=== PATIENT | female | born 1970 | race Caucasian/White ===

== ENCOUNTER 2016-12-22 14:58 | Emergency (ER) ==
[2016-12-22 15:11] VITALS: BP 166/114; TEMP 99.6; BMI 45.1
--- NOTE | 2016-12-22 15:19 | ED.PDOC ---
General ED Provider: Dr. CHRISTINA DEJESUS JR Chief Complaint: Abdominal Pain Stated Complaint: HAVING ABD PAIN FOR ABOUT TWO WEEKS OFF AND ON. HAS BEEN CONSULTING WITH DR MACHADO FOR A COLONOSCOPY. TWO BLOODY STOOLS.[End]ABD PAIN WITH BLOODY STOOLS,BLOOD WITH LAST TWO STOOLS TODAY. 99.6 78 20 97% 166/114 colonoscopy 2006, found two small polyps, has had blood in stool once before with diverticulitis, scheduling colonoscopy due to pain in right abdomen, tender left mid abdomen (had had pain RUQ then LUQ now moving down is tender as noted)has cell phone photo of blood in stool, aching and burning. Time Seen by Physician: 15:32 Mode of Arrival: Walk-In Information Source: Patient Exam Limitations: No limitations Primary Care Provider: ABNER MACHADO Nursing and Triage Documentation Reviewed and Agree: No GI Complaint Exam - Rectal Complaint/Exam Patient Complains of: Reports: Rectal pain, Rectal bleeding Onset/Duration: 1 day Symptoms Are: Resolved Timing: Intermittent Episodes Lasting: Seconds Initial Severity: Moderate Current Severity: Moderate Location: Reports: Anal (and abdominal) Character: Reports: Sharp Aggravating: Reports: Bowel movement Alleviating: Reports: Position Associated Signs and Symptoms: Reports: Bright red blood w/ stool Related History: Denies: Similar episode Related Surgical History: Reports: Cholecystectomy (colonoscopy) Rectal Exam: Present: Normal findings, Tenderness (right anal verge and posterior denies trauma). Absent: Internal hemorrhoids, External hemorrhoids, Melena Differential Diagnoses: Rectal Fissure (GIBLEED) Review of Systems - Review Of Systems Constitutional: Reports: Malaise Eyes: Reports: No symptoms Ears, Nose, Mouth, Throat: Reports: No symptoms Respiratory: Reports: No symptoms Cardiac: Reports: No symptoms GI: Reports: Abdominal pain, Rectal bleeding : Reports: No symptoms Musculoskeletal: Reports: No symptoms Skin: Reports: No symptoms Neurological: Reports: No symptoms Endocrine: Reports: No symptoms Hematologic/Lymphatic: Reports: No symptoms All Other Systems: Other Past Medical History - Past Medical History Previously Healthy: Yes Endocrine: Reports: Dyslipidemia Cardiovascular: Reports: Hypertension Respiratory: Reports: None Hematological: Reports: None Gastrointestinal: Reports: Liver (HEP C), GI Bleed, Diverticulitis, Gallstones, Pancreatitis Genitourinary: Reports: CKD, Other (polycystic kidneys) Neuro/Psych: Reports: None Musculoskeletal: Reports: None Cancer: Reports: None Last Menstrual Period: 2000 Other Pertinent Past Medical History: pancreatitis - Surgical History General Surgical History: Reports: Hysterectomy, , Cholecystectomy ( ERCP) - Family History Family History: Reports: Unknown - Social History Smoking Status: Former smoker Hx Substance Use: No Alcohol Screening: None - Immunizations Tetanus Shot up to Date: Yes Physical Exam - Physical Exam Appearance: Well-appearing, Obese Pain Distress: Moderate Eyes: SARAH BETH ENT: Ears normal, Nose normal, Oropharynx normal Neck: Supple Respiratory: Airway patent, Breath sounds clear, Breath sounds equal, Respirations nonlabored Cardiovascular: RRR, Pulses normal, No rub, No murmur GI/: Soft, Tender (left mid abdomen) Musculoskeletal: Normal strength, ROM intact, No edema, No calf tenderness Skin: Warm, Dry, Normal color Neurological: Sensation intact, Motor intact, Reflexes intact, Cranial nerves intact, Alert, Oriented Psychiatric: Affect appropriate, Mood appropriate Physician Notification - Case Discussed Physician Notified: dr johana riojas- may call dr rodriguez in the morning Time of Notification: 17:30 Critical Care Note - Critical Care Note Total Time (mins): 0 Course - Course Hematology/Chemistry: 12/22/16 15:23 12/22/16 15:30 Orders, Labs, Meds: Lab Review 12/22/16 12/22/16 12/22/16 15:23 15:30 15:35 WBC 6.83 RBC 4.31 Hgb 13.3 Hct 40.0 MCV 92.8 MCH 30.9 MCHC 33.3 RDW Coeff of Crow 13.6 Plt Count 176 Immature Gran % (Auto) 0.4 Neut % (Auto) 70.3 Lymph % (Auto) 19.9 [place] % (Auto) 5.6 Eos % (Auto) 3.2 Baso % (Auto) 0.6 Immature Gran # (Auto) 0.0 Neut # 4.8 Lymph # 1.4 Craig # 0.4 Eos # 0.2 Baso # 0.0 Sodium 141 Potassium 4.8 Chloride 108 H Carbon Dioxide 23 Anion Gap 14.8 BUN 26 H Creatinine 2.36 H Estimated GFR (MDRD) 22.00 BUN/Creatinine Ratio 11.01 Glucose 91 Calcium 9.6 Total Bilirubin 0.39 AST 44 H ALT 47 Alkaline Phosphatase 22 L Total Protein 7.4 Albumin 3.8 Globulin 3.6 Albumin/Globulin Ratio 1.06 Amylase 68 Lipase 42 Urine Color Yellow Urine Clarity Clear Urine pH 5.5 Ur Specific [place] 1.015 Urine Protein 1+ Urine Glucose (UA) Negative Urine Ketones Negative Urine Blood Trace-lysed Urine Nitrite Negative Urine Bilirubin Negative Urine Urobilinogen 0.2 Ur Leukocyte Esterase Negative Urine Microscopic RBC 0-2 Urine Microscopic WBC 0-2 Ur Squamous Epith Cells 0-2 Urine Bacteria Trace Stl Occult Blood (IFOB) Negative Stool Occult Blood #2 No specimen received Stool Occult Blood #3 No specimen received Orders Category Date Time Status NPO REMINDER: IMAGING ONCE CARE 12/22/16 16:07 Completed ED IV/MEDIPORT/POWERPORT .ONCE EMERGENCY 12/22/16 15:23 Active IV [ED IV/MEDIPORT/POWERPORT] .ONCE EMERGENCY 12/22/16 15:38 Active AMYLASE Stat LAB 12/22/16 15:30 Completed CBC W/ AUTO DIFF Stat LAB 12/22/16 15:23 Completed COMPREHENSIVE METABOLIC PANEL Stat LAB 12/22/16 15:30 Completed LIPASE Stat LAB 12/22/16 15:30 Completed OCCULT BLOOD, STOOL Stat LAB 12/22/16 15:35 Completed URINALYSIS C & S IF INDICATED Stat LAB 12/22/16 15:35 Completed 0.9 % Sodium Chloride [Saline Flush] MEDS 12/22/16 15:23 Discontinued 1 syr IVF PRN PRN Hydromorphone HCl [Dilaudid 1 mg/ml Syringe] MEDS 12/22/16 15:38 Discontinued 1 mg IVP ONCE STA Metronidazole [Flagyl] MEDS 12/22/16 16:00 Discontinued 500 mg PO ONCE STA Ondansetron HCl/Pf [Zofran 4 mg/2 ml] MEDS 12/22/16 15:38 Discontinued 4 mg IVP ONCE STA Sodium Chloride 0.9% [Sodium Chloride] 500 ml MEDS 12/22/16 15:37 Discontinued IV 100 mls/hr CT ABDOMEN/PELVIS WO CONTRAST Stat RADS 12/22/16 16:10 Completed Medications Discontinued Medications Generic Name Dose Route Start Last Admin Trade Name Freq PRN Reason Stop Dose Admin Hydromorphone HCl 1 mg 12/22/16 15:38 12/22/16 16:15 Dilaudid 1 Mg/Ml Syringe IVP 12/22/16 15:39 1 mg ONCE STA Administration Sodium Chloride 500 mls @ 100 mls/hr 12/22/16 15:37 12/22/16 16:07 Sodium Chloride IV 12/22/16 20:36 100 mls/hr .Q5H STA Administration Metronidazole 500 mg 12/22/16 16:00 12/22/16 16:08 Flagyl PO 12/22/16 16:01 500 mg ONCE STA Administration Ondansetron HCl 4 mg 12/22/16 15:38 12/22/16 16:10 Zofran 4 Mg/2 Ml IVP 12/22/16 15:39 4 mg ONCE STA Administration Sodium Chloride 1 syr 12/22/16 15:23 12/22/16 16:07 Saline Flush IVF 1 syr PRN PRN Administration To flush IV Vital Signs: Temp Pulse Resp BP Pulse Ox 12/22/16 14:59 99.6 F 78 20 166/114 H 97 Departure - Departure Time of Disposition: 17:45 Disposition: HOME SELF-CARE Discharge Problem: Abdominal pain Instructions: Abdominal Pain (ED), Gastrointestinal Bleeding (ED) Condition: Good Pt referred to PMD for follow-up: Yes Additional Instructions: 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 morning for follow up gastrointestinal bleeding [phone] [address] doctor office [address]#2 return if more than two bloody bowel movements if light headed if abdominal pain worsens or present to [facility] may use norco for pain Prescriptions: Hydrocodone Bit/Acetaminophen [Rumsey 5-325] 1 - 2 tab PO Q6HR PRN #12 tablet PRN Reason: pain Allergies/Adverse Reactions: Allergies No Known Allergies Allergy (Verified 12/22/16 16:28) Home Medications: Ambulatory Orders Aspirin [Aspirin EC] 81 mg PO DAILY 08/21/13 Lisinopril [Zestril] 40 mg PO DAILY 08/21/13 Sertraline HCl [Zoloft] 50 mg PO BEDTIME 08/21/13 Cholecalciferol (Vitamin D3) [Vitamin D] 50,000 unit PO MONTHLY 08/10/16 Fenofibrate Nanocrystallized [Tricor] 48 mg PO DAILY 08/10/16 Furosemide [Lasix Tab] 20 mg PO DAILY 08/10/16 Ranitidine HCl [Zantac] 150 mg PO QDAC 11/18/16 Calcitriol 0.25 mcg PO DAILY 12/22/16 Hydrocodone Bit/Acetaminophen [Rumsey 5-325] 1 - 2 tab PO Q6HR PRN #12 tablet 01/06
[2016-12-22 15:37] LABS: BASOPHILS % (AUTO) 0.6 % (0.0-3.0); EOSINOPHILS # (AUTO) 0.2 K/ul (0.0-0.7); EOSINOPHILS % (AUTO) 3.2 % (0.0-7.0); HEMOGLOBIN 13.3 g/dl (12.0-16.0); IMMATURE GRANULOCYTE % (AUTO) 0.4 % (0.0-5.0); LYMPHOCYTES # (AUTO) 1.4 K/uL (0.60-3.4); LYMPHOCYTES % (AUTO) 19.9 (10.0-50.0); MEAN CORPUSCULAR HEMOGLOBIN 30.9 pg (27.0-31.0); MEAN CORPUSCULAR HGB CONC 33.3 (31.8-35.4); MEAN CORPUSCULAR VOLUME 92.8 fl (81.0-99.0); MONOCYTES # (AUTO) 0.4 K/uL (0.4-2.0); MONOCYTES % (AUTO) 5.6 (0-10); NEUTROPHILS # (AUTO) 4.8 K/ul (2.0-6.9); NEUTROPHILS % (AUTO) 70.3; PLATELET COUNT 176 10^3/uL (140-440); RED BLOOD COUNT 4.31 10^6/ul (4.20-5.40); WHITE BLOOD COUNT 6.83 K/ul (4.6-10.2)
[2016-12-22] MEDS ORDERED: SODIUM CHLORIDE 500 ML IV STA (15:37)
[2016-12-22] MEDS ORDERED: ZOFRAN 4 MG/2 ML IVP STA (15:38)
[2016-12-22] MEDS ORDERED: DILAUDID 1 MG/ML SYRINGE IVP STA (15:38)
[2016-12-22 15:47] LABS: BILIRUBIN,URINE Negative (NEGATIVE); KETONES,URINE Negative (NEGATIVE); LEUKOCYTE ESTERASE ,URINE Negative (NEGATIVE); NITRITE,URINE Negative (NEGATIVE); PH,URINE 5.5 (5-9); PROTEIN,URINE 1+ (NEGATIVE); URINE, BLOOD Trace-lysed (NEGATIVE)
[2016-12-22 15:53] LABS: OCCULT BLOOD INTERNAL QC 1 INTERNAL QC VALID; OCCULT BLOOD INTERNAL QC 2 INTERNAL QC VALID; OCCULT BLOOD SAMPLE 1 NEGATIVE (NEGATIVE); OCCULT BLOOD SAMPLE 2 NO SPECIMEN RECEIVED (NEGATIVE); OCCULT BLOOD SAMPLE 3 NO SPECIMEN RECEIVED (NEGATIVE)
[2016-12-22 15:54] LABS: ADD URINE MICROSCOPIC YES; OCCULT BLOOD INTERNAL QC 3 INTERNAL QC VALID
[2016-12-22 15:59] LABS: ALBUMIN 3.8 g/dL (3.4-5.0); ALBUMIN/GLOBULIN RATIO 1.06; ANION GAP 14.8; BILIRUBIN,TOTAL 0.39 mg/dL (0.00-1.20); BUN/CREATININE RATIO 11.01; CALCIUM 9.6 mg/dL (8.2-10.2); CREATININE 2.36 mg/dL (0.60-1.30); POTASSIUM 4.8 mmol/L (3.5-5.10); TOTAL PROTEIN 7.4 g/dL (6.4-8.2)
[2016-12-22] MEDS ORDERED: FLAGYL PO STA (16:00)
[2016-12-22 16:07] LABS: BACTERIA,URINE TRACE (NOT PRESENT)
--- NOTE | 2016-12-22 16:49 | CT ---
EXAM: CT abdomen pelvis without intravenous contrast 12/22/2016. Sagittal and coronal reformatted images obtained HISTORY: Abdominal pain COMPARISON: 11/18/2016 FINDINGS: The liver shows no acute abnormality. There is a small amount of pneumobilia. Status po st cholecystectomy. Diffuse hepatic steatosis. The adrenal glands show no acute abnormality. Innumerable simple and complex cystic lesions through out both kidneys. This is consistent with polycystic kidney disease. The ureters are normal calibe r. There is no evidence of urinary obstruction. The spleen and pancreas show no acute process. There is no bowel obstruction. Normal appendix. Unremarkable urinary bladder. No free air or free fluid. Colonic diverticulosis without diverticulitis. IMPRESSION: 1. Hepatic steatosis. 2. Pneumobilia post cholecystectomy. 3. Polycystic kidney disease. 4. No urinary or bowel obstruction and normal appendix. 5. Diverticulosis without diverticulitis. 6. No acute inflammatory process identified within the abdomen or pelvis within the limitation of a noncontrast enhanced examination.
== END 2016-12-22 18:17 | disposition home or self-care (01) ==
LOC: ED 14:58
DX: R10.9 Unspecified abdominal pain (principal); K92.1 Melena; I10 Essential (primary) hypertension; E78.5 Hyperlipidemia, unspecified; Z87.19 Personal history of other diseases of the digestive system; Z79.899 Other long term (current) drug therapy
CPT/HCPCS: 36415; 80053; 81001; 82150; 82272; 83690; 85025; 96361; 96374; 96375; 99283

== ENCOUNTER 2017-01-25 13:11 | Outpatient (CLI) ==
[2017-01-25 13:25] LABS: BASOPHILS % (AUTO) 0.6 % (0.0-3.0); EOSINOPHILS # (AUTO) 0.1 K/ul (0.0-0.7); EOSINOPHILS % (AUTO) 2.8 % (0.0-7.0); HEMATOCRIT 38.1 % (37.0-47.0); HEMOGLOBIN 12.6 g/dl (12.0-16.0); IMMATURE GRANULOCYTE % (AUTO) 0.6 % (0.0-5.0); LYMPHOCYTES # (AUTO) 1.1 K/uL (0.60-3.4); LYMPHOCYTES % (AUTO) 22.8 (10.0-50.0); MEAN CORPUSCULAR HEMOGLOBIN 30.8 pg (27.0-31.0); MEAN CORPUSCULAR HGB CONC 33.1 (31.8-35.4); MEAN CORPUSCULAR VOLUME 93.2 fl (81.0-99.0); MONOCYTES # (AUTO) 0.2 K/uL (0.4-2.0); MONOCYTES % (AUTO) 3.8 (0-10); NEUTROPHILS # (AUTO) 3.5 K/ul (2.0-6.9); NEUTROPHILS % (AUTO) 69.4; PLATELET COUNT 140 10^3/uL (140-440); RED BLOOD COUNT 4.09 10^6/ul (4.20-5.40); WHITE BLOOD COUNT 5.01 K/ul (4.6-10.2)
== END 2017-01-25 13:12 | disposition home or self-care (01) ==
LOC: LAB 13:11
PROVIDERS: ATTEND Internal Medicine Hematology & Oncology
DX: D75.1 Secondary polycythemia (principal)
CPT/HCPCS: 36415; 85025

== ENCOUNTER 2017-02-18 13:45 | Emergency (ER) ==
[2017-02-18 13:55] VITALS: BP 150/90; TEMP 98.6; BMI 45.4
[2017-02-18 14:33] LABS: BASOPHILS # (AUTO) 0.1 K/uL (0-0.2); BASOPHILS % (AUTO) 0.5 % (0.0-3.0); EOSINOPHILS # (AUTO) 0.2 K/ul (0.0-0.7); EOSINOPHILS % (AUTO) 2.3 % (0.0-7.0); HEMATOCRIT 42.9 % (37.0-47.0); HEMOGLOBIN 13.9 g/dl (12.0-16.0); IMMATURE GRANULOCYTE % (AUTO) 0.6 % (0.0-5.0); LYMPHOCYTES # (AUTO) 1.3 K/uL (0.60-3.4); MEAN CORPUSCULAR HEMOGLOBIN 29.8 pg (27.0-31.0); MEAN CORPUSCULAR HGB CONC 32.4 (31.8-35.4); MEAN CORPUSCULAR VOLUME 92.1 fl (81.0-99.0); MONOCYTES # (AUTO) 0.6 K/uL (0.4-2.0); NEUTROPHILS # (AUTO) 7.9 K/ul (2.0-6.9); NEUTROPHILS % (AUTO) 77.6; PLATELET COUNT 177 10^3/uL (140-440); RED BLOOD COUNT 4.66 10^6/ul (4.20-5.40); WHITE BLOOD COUNT 10.22 K/ul (4.6-10.2)
[2017-02-18 14:43] LABS: BILIRUBIN,URINE Negative (NEGATIVE); KETONES,URINE Negative (NEGATIVE); LEUKOCYTE ESTERASE ,URINE Negative (NEGATIVE); NITRITE,URINE Negative (NEGATIVE); PH,URINE 5.5 (5-9); PROTEIN,URINE 1+ (NEGATIVE); URINE, BLOOD Trace-intact (NEGATIVE)
[2017-02-18 14:44] LABS: ADD URINE MICROSCOPIC YES
--- NOTE | 2017-02-18 14:47 | DI ---
EXAM: Two-view chest. HISTORY: Cough. COMPARISON: None. FINDINGS: AP and lateral views of the chest. The lungs are clear without consolidation or effusion . The heart size and pulmonary vasculature is normal. There is no pneumothorax. The osseous struc tures are normal for age. The aorta is unremarkable. IMPRESSION: No acute pulmonary disease.
[2017-02-18 14:51] LABS: ALBUMIN/GLOBULIN RATIO 1.05; BILIRUBIN,TOTAL 0.71 mg/dL (0.00-1.20); BUN/CREATININE RATIO 16.84; CALCIUM 10.2 mg/dL (8.2-10.2); CREATININE 2.73 mg/dL (0.60-1.30); TOTAL PROTEIN 7.8 g/dL (6.4-8.2)
--- NOTE | 2017-02-18 14:52 | CT ---
EXAM: Noncontrast CT of the abdomen and pelvis. HISTORY: Abdominal pain. COMPARISON: None. TECHNIQUE: Contiguous axial images at 3 mm intervals were obtained from lung bases through the pelv is. No contrast was given. Coronal reformats were reviewed. FINDINGS: The study is limited without contrast. CHEST: The lung bases show no lobar consolidation or effusion. The heart size is within normal nobles its. ABDOMEN: Evaluation of the soft tissue organs is limited without contrast. LIVER: Noncontrast images of the liver show no solid mass lesion or intrahepatic ductal dilatation. The liver is mildly hypodense consistent fat infiltration. BILIARY: The gallbladder is surgically absent. There are clips in the gallbladder fossa. The comm on bile duct is normal. SPLEEN: The spleen is unremarkable. PANCREAS: The pancreas shows no mass lesion or peripancreatic inflammation. ADRENAL GLANDS: The adrenal glands are normal. RENAL: The kidneys are enlarged with multiple cysts bilaterally. Majority cysts are hyperdense. Th ere is a ring calcified cyst as well as several hyperdense cyst. Evaluation is limited without cont rast. There are no obstructing ureteral stones. RETROPERITONEUM: The aorta is unopacified. No aneurysm is identified. Minimal aortic calcificatio ns are seen. There is no retroperitoneal or mesenteric adenopathy. BOWEL: The bowel is unopacified. There is no obstruction or inflammatory change. There is no free fluid or free air. No significant inflammatory changes are seen. Scattered diverticula seen with out evidence of acute diverticulitis. The appendix is identified and is normal. PELVIS: BLADDER: The bladder is not well distended which limits evaluation P. GENITOURINARY STRUCTURES: The uterus is absent. There is a left adnexal mass measuring 4.9 x 5.7 c m. Evaluation is limited on CT. OSSEOUS STRUCTURES: The osseous structures are normal for age. IMPRESSION 1. No acute intra-abdominal abnormality. Limited study without contrast. No obstructing ureteral stones. 2. The appendix is normal. 3. Multiple bilateral too numerous to count cystic masses consistent with polycystic kidney disease . Correlate with history and symptoms. No comparisons are available. 4. Left adnexal mass measuring up to 5.7 cm. Consider follow-up ultrasound if clinically indicated .
--- NOTE | 2017-02-18 15:17 | ED.PDOC ---
General ED Provider: Dr. 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 ) Mode of Arrival: Walk-In Information Source: Patient Exam Limitations: No limitations Primary Care Provider: ABNER MACHADO Nursing and Triage Documentation Reviewed and Agree: Yes GI Complaint Exam - Abdominal Pain Complaint/Exam Onset: Gradual Duration: 1 DAY Symptoms Are: Still present Timing: Intermittent Initial Severity: Moderate Current Severity: Mild Location of Pain: RLQ, LLQ Character: Reports: Aching Aggravating: Reports: None Alleviating: Reports: None Associated Signs and Symptoms: Denies: Diaphoresis, Fever, Cough, Chest pain, Dizziness, Back pain, Constipation, Blood in stool, Dysuria, Urinary frequency, Decreased urine output, Decreased appetite, Vaginal bleeding, Vaginal discharge , Nausea, Vomiting, Diarrhea, Sore throat, Decreased activity Related History: Reports: Similar episode (DIVERTICULITIS ) AAA Risk Factors: Reports: None Cardiac Risk Factors: Reports: Hypertension, Elevated lipids Ectopic Risk Factors: Reports: None Ovarian Torsion Risk Factors: Reports: None Surgical Obstruction Risk Factors: Reports: None Related Surgical History: Reports: None Patient Rh Status: Unknown Abdominal Findings: Present: None Differential Diagnoses: Appendicitis, Bowel Obstruction, Constipation, Gastroenteritis, Pancreatitis (DIVERTICULITIS) Review of Systems - Review Of Systems Constitutional: Reports: No symptoms Eyes: Reports: No symptoms Ears, Nose, Mouth, Throat: Reports: No symptoms Respiratory: Reports: No symptoms Cardiac: Reports: No symptoms GI: Reports: Abdominal pain : Reports: No symptoms Musculoskeletal: Reports: No symptoms Skin: Reports: No symptoms Neurological: Reports: No symptoms Endocrine: Reports: No symptoms Hematologic/Lymphatic: Reports: No symptoms All Other Systems: Reviewed and Negative Past Medical History - Past Medical History Previously Healthy: Yes Endocrine: Reports: Dyslipidemia Cardiovascular: Reports: Hypertension Respiratory: Reports: None Hematological: Reports: None Gastrointestinal: Reports: Liver (HEP C), GI Bleed, Diverticulitis, Gallstones, Pancreatitis Genitourinary: Reports: CKD, Other (polycystic kidneys) Neuro/Psych: Reports: None Musculoskeletal: Reports: None Cancer: Reports: None Last Menstrual Period: 2000 Other Pertinent Past Medical History: pancreatitis - Surgical History General Surgical History: Reports: Hysterectomy, , Cholecystectomy ( ERCP) - Family History Family History: Reports: Unknown - Social History Smoking Status: Former smoker Hx Substance Use: No Alcohol Screening: None Physical Exam - Physical Exam Appearance: Well-appearing, No pain distress, Well-nourished Eyes: SARAH BETH, EOMI, Conjunctiva clear ENT: Ears normal, Nose normal, Oropharynx normal Respiratory: Airway patent, Breath sounds clear, Breath sounds equal, Respirations nonlabored Cardiovascular: RRR, Pulses normal, No rub, No murmur GI/: Soft, Nontender, No masses, Bowel sounds normal, No Organomegaly Musculoskeletal: Normal strength, ROM intact, No edema, No calf tenderness Skin: Warm, Dry, Normal color Neurological: Sensation intact, Motor intact, Reflexes intact, Cranial nerves intact, Alert, Oriented Psychiatric: Affect appropriate, Mood appropriate Interpretation - Radiology Interpretation Radiology Interpretation By: Radiologist Radiology Results: No acute changes Critical Care Note - Critical Care Note Total Time (mins): 0 Course - Course Hematology/Chemistry: 02/18/17 14:25 02/18/17 14:25 Orders, Labs, Meds: Lab Review 02/18/17 14:25 WBC 10.22 H RBC 4.66 Hgb 13.9 Hct 42.9 MCV 92.1 MCH 29.8 MCHC 32.4 RDW Coeff of Crow 14.3 Plt Count 177 Immature Gran % (Auto) 0.6 Neut % (Auto) 77.6 Lymph % (Auto) 13.0 [place] % (Auto) 6.0 Eos % (Auto) 2.3 Baso % (Auto) 0.5 Immature Gran # (Auto) 0.1 Neut # 7.9 H Lymph # 1.3 [place] # 0.6 Eos # 0.2 Baso # 0.1 Sodium 138 Potassium 5.0 Chloride 107 Carbon Dioxide 21 Anion Gap 15.0 BUN 46 H Creatinine 2.73 H Estimated GFR (MDRD) 19.00 BUN/Creatinine Ratio 16.84 Glucose 116 H Calcium 10.2 Total Bilirubin 0.71 AST 33 ALT 45 Alkaline Phosphatase 25 L Total Protein 7.8 Albumin 4.0 Globulin 3.8 Albumin/Globulin Ratio 1.05 Amylase 88 Lipase 54 Urine Color Yellow Urine Clarity Clear Urine pH 5.5 Ur Specific [place] 1.010 Urine Protein 1+ Urine Glucose (UA) Negative Urine Ketones Negative Urine Blood Trace-intact Urine Nitrite Negative Urine Bilirubin Negative Urine Urobilinogen 0.2 Ur Leukocyte Esterase Negative Urine Microscopic RBC 2-5 Ur Squamous Epith Cells 5-10 Orders Category Date Time Status AMYLASE Stat LAB 02/18/17 14:25 Completed CBC W/ AUTO DIFF Stat LAB 02/18/17 14:25 Completed COMPREHENSIVE METABOLIC PANEL Stat LAB 02/18/17 14:25 Completed LIPASE Stat LAB 02/18/17 14:25 Completed URINALYSIS C & S IF INDICATED Stat LAB 02/18/17 14:25 Completed CHEST, 2 VIEWS PA & LAT Stat RADS 02/18/17 14:[address] ABDOMEN/PELVIS WO CONTRAST Stat RADS 02/18/17 14:21 Completed Vital Signs: Temp Pulse Resp BP Pulse Ox 02/18/17 13:46 98.6 F 84 22 150/90 H 96 Departure - Departure Time of Disposition: 15:17 (PT RWEPORTED OF A LEFT SIDE 6 CM OVARY CYST FOR WHICH SHE IS SHE BEING TREATED NEXT WEEK ) Disposition: HOME SELF-CARE Discharge Problem: Abdominal pain, Renal insufficiency Instructions: Abdominal Pain (ED), Ovarian Cyst (ED) Condition: Good Pt referred to PMD for follow-up: No Additional Instructions: Please call your Family Physician as soon as possible to schedule a follow-up appointment. Allergies/Adverse Reactions: Allergies No Known Allergies Allergy (Verified 02/18/17 13:54) Home Medications: Ambulatory Orders Aspirin [Aspirin EC] 81 mg PO DAILY 08/21/13 Lisinopril [Zestril] 40 mg PO DAILY 08/21/13 Sertraline HCl [Zoloft] 50 mg PO BEDTIME 08/21/13 Cholecalciferol (Vitamin D3) [Vitamin D] 50,000 unit PO WEEKLY 08/10/16 Fenofibrate Nanocrystallized [Tricor] 48 mg PO DAILY 08/10/16 Furosemide [Lasix Tab] 20 mg PO DAILY 08/10/16 Ranitidine HCl [Zantac] 150 mg PO QDAC 11/18/16 Calcitriol 0.25 mcg PO DAILY 12/22/16 Dicyclomine HCl 10 mg PO ACHS 02/18/17 Lipase/Protease/Amylase [Bony Pereira 12,000 Units Capsule] 1 cap PO ACHS 02/18/17 Disposition Discussed With: Patient
== END 2017-02-18 15:26 | disposition home or self-care (01) ==
LOC: ED 13:45
DX: R10.30 Lower abdominal pain, unspecified (principal); N28.9 Disorder of kidney and ureter, unspecified; N83.202 Unspecified ovarian cyst, left side; I10 Essential (primary) hypertension; E78.5 Hyperlipidemia, unspecified; Z79.899 Other long term (current) drug therapy
CPT/HCPCS: 36415; 80053; 81001; 82150; 83690; 85025; 99283

== ENCOUNTER 2017-03-15 13:09 | Outpatient (CLI) ==
[2017-03-15 13:28] LABS: BASOPHILS # (AUTO) 0.1 K/uL (0-0.2); BASOPHILS % (AUTO) 0.6 % (0.0-3.0); EOSINOPHILS # (AUTO) 0.2 K/ul (0.0-0.7); HEMOGLOBIN 12.8 g/dl (12.0-16.0); IMMATURE GRANULOCYTE % (AUTO) 0.7 % (0.0-5.0); LYMPHOCYTES # (AUTO) 1.1 K/uL (0.60-3.4); LYMPHOCYTES % (AUTO) 13.9 (10.0-50.0); MEAN CORPUSCULAR HEMOGLOBIN 30.3 pg (27.0-31.0); MEAN CORPUSCULAR HGB CONC 32.5 (31.8-35.4); MEAN CORPUSCULAR VOLUME 93.4 fl (81.0-99.0); MONOCYTES # (AUTO) 0.4 K/uL (0.4-2.0); MONOCYTES % (AUTO) 4.9 (0-10); NEUTROPHILS # (AUTO) 6.2 K/ul (2.0-6.9); NEUTROPHILS % (AUTO) 76.9; PLATELET COUNT 198 10^3/uL (140-440); RED BLOOD COUNT 4.22 10^6/ul (4.20-5.40); WHITE BLOOD COUNT 8.04 K/ul (4.6-10.2)
[2017-03-15 13:29] LABS: HEMATOCRIT 39.4 % (37.0-47.0)
== END 2017-03-15 13:10 | disposition home or self-care (01) ==
LOC: LAB 13:09
PROVIDERS: ATTEND Internal Medicine Hematology & Oncology
DX: D75.1 Secondary polycythemia (principal)
CPT/HCPCS: 36415; 85025

== ENCOUNTER 2017-05-01 16:49 | Emergency (ER) ==
[2017-05-01 16:57] VITALS: BP 129/85; TEMP 99.6; BMI 45.6
--- NOTE | 2017-05-01 18:25 | ED.PDOC ---
General ED Provider: Dr. BRIJESH SHERMAN Chief Complaint: Non-specific Complaint Stated Complaint: weakness generalized Time Seen by Physician: 17:00 (interested to know her renal function) Mode of Arrival: Walk-In Information Source: Patient Exam Limitations: No limitations Primary Care Provider: ABNER MACHADO Nursing and Triage Documentation Reviewed and Agree: Yes Neurological Complaint Exam - Weakness Complaint/Exam Last Known Well: weeks Onset: Gradual Duration: present Symptoms Are: Still present Timing: Constant Initial Severity: Mild Current Severity: Mild Character: Reports: Weak Aggravating: Reports: None Alleviating: Reports: None Associated Signs and Symptoms: Reports: Palpitations Related History: Similar episode Cardiac Risk Factors: Reports: Hypertension CVA Risk Factors: Reports: Hypertension Related Surgical History: Reports: None JVD Present: No Carotid Bruit Present: No Rectal Heme Positive: No Glascow Coma Scale (see protocol): 15 Nystagmus Present: No Gag Reflex Present: No Meningeal Signs Positive: No Focal Weakness: Present: None Focal Sensory Loss: Present: None Gait: Normal Differential Diagnoses: Hypovolemia, Metabolic abnormalities, Vasovagal reaction Review of Systems - Review Of Systems Constitutional: Reports: Weakness Eyes: Reports: No symptoms Ears, Nose, Mouth, Throat: Reports: No symptoms Respiratory: Reports: No symptoms Cardiac: Reports: No symptoms GI: Reports: No symptoms : Reports: No symptoms Musculoskeletal: Reports: No symptoms Skin: Reports: No symptoms Neurological: Reports: No symptoms Endocrine: Reports: No symptoms Hematologic/Lymphatic: Reports: No symptoms All Other Systems: Reviewed and Negative Past Medical History - Past Medical History Previously Healthy: Yes Endocrine: Reports: Dyslipidemia Cardiovascular: Reports: Hypertension Respiratory: Reports: None Hematological: Reports: None Gastrointestinal: Reports: Liver (HEP C), GI Bleed, Diverticulitis, Gallstones, Pancreatitis Genitourinary: Reports: CKD, Other (polycystic kidneys) Neuro/Psych: Reports: None Musculoskeletal: Reports: None Cancer: Reports: None Last Menstrual Period: hysterectomy Other Pertinent Past Medical History: pancreatitis - Surgical History General Surgical History: Reports: Hysterectomy, , Cholecystectomy ( ERCP) - Family History Family History: Reports: Unknown - Social History Smoking Status: Former smoker Hx Substance Use: No Alcohol Screening: None Physical Exam - Physical Exam Appearance: Well-appearing, No pain distress, Well-nourished Eyes: SARAH BETH, EOMI, Conjunctiva clear ENT: Ears normal, Nose normal, Oropharynx normal Respiratory: Airway patent, Breath sounds clear, Breath sounds equal, Respirations nonlabored Cardiovascular: RRR, Pulses normal, No rub, No murmur GI/: Soft, Nontender, No masses, Bowel sounds normal, No Organomegaly Musculoskeletal: Normal strength, ROM intact, No edema, No calf tenderness Skin: Warm, Dry, Normal color Neurological: Sensation intact, Motor intact, Reflexes intact, Cranial nerves intact, Alert, Oriented Psychiatric: Affect appropriate, Mood appropriate Critical Care Note - Critical Care Note Total Time (mins): 0 Course - Course Orders, Labs, Meds: Orders Category Date Time Status CBC W/ AUTO DIFF Stat LAB 05/01/17 18:21 Ordered COMPREHENSIVE METABOLIC PANEL Stat LAB 05/01/17 18:21 Ordered URINALYSIS C & S IF INDICATED Stat LAB 05/01/17 18:21 Uncollected Vital Signs: Temp Pulse Resp BP Pulse Ox 05/01/17 16:50 99.6 F 82 20 129/85 95 Departure - Departure Time of Disposition: 19:00 Disposition: HOME SELF-CARE Discharge Problem: Weakness generalized, Renal insufficiency Instructions: Chronic Kidney Disease (ED), Weakness (ED) Condition: Good Pt referred to PMD for follow-up: Yes Allergies/Adverse Reactions: Allergies No Known Allergies Allergy (Verified 05/01/17 16:58) Home Medications: Ambulatory Orders Aspirin [Aspirin EC] 81 mg PO DAILY 08/21/13 Lisinopril [Zestril] 40 mg PO DAILY 08/21/13 Sertraline HCl [Zoloft] 50 mg PO BEDTIME 08/21/13 Cholecalciferol (Vitamin D3) [Vitamin D] 50,000 unit PO WEEKLY 08/10/16 Fenofibrate Nanocrystallized [Tricor] 48 mg PO DAILY 08/10/16 Furosemide [Lasix Tab] 20 mg PO DAILY 08/10/16 Ranitidine HCl [Zantac] 150 mg PO QDAC 11/18/16 Calcitriol 0.25 mcg PO DAILY 12/22/16 Lipase/Protease/Amylase [Creon Dr 12,000 Units Capsule] 1 cap PO ACHS 02/18/17
[2017-05-01 18:35] LABS: BASOPHILS % (AUTO) 0.5 % (0.0-3.0); EOSINOPHILS # (AUTO) 0.2 K/ul (0.0-0.7); EOSINOPHILS % (AUTO) 2.5 % (0.0-7.0); HEMATOCRIT 38.5 % (37.0-47.0); HEMOGLOBIN 12.9 g/dl (12.0-16.0); IMMATURE GRANULOCYTE % (AUTO) 0.7 % (0.0-5.0); LYMPHOCYTES # (AUTO) 1.5 K/uL (0.60-3.4); LYMPHOCYTES % (AUTO) 19.9 (10.0-50.0); MEAN CORPUSCULAR HEMOGLOBIN 30.5 pg (27.0-31.0); MEAN CORPUSCULAR HGB CONC 33.5 (31.8-35.4); MONOCYTES # (AUTO) 0.4 K/uL (0.4-2.0); MONOCYTES % (AUTO) 5.3 (0-10); NEUTROPHILS # (AUTO) 5.2 K/ul (2.0-6.9); NEUTROPHILS % (AUTO) 71.1; PLATELET COUNT 171 10^3/uL (140-440); RED BLOOD COUNT 4.23 10^6/ul (4.20-5.40); WHITE BLOOD COUNT 7.29 K/ul (4.6-10.2)
[2017-05-01 18:35] LABS: BILIRUBIN,URINE Negative (NEGATIVE); KETONES,URINE Negative (NEGATIVE); LEUKOCYTE ESTERASE ,URINE Negative (NEGATIVE); NITRITE,URINE Negative (NEGATIVE); PH,URINE 5.5 (5-9); PROTEIN,URINE 1+ (NEGATIVE); URINE, BLOOD Trace-intact (NEGATIVE)
[2017-05-01 18:37] LABS: ADD URINE MICROSCOPIC YES
[2017-05-01 18:41] LABS: BACTERIA,URINE TRACE (NOT PRESENT)
[2017-05-01 19:03] LABS: ALBUMIN 3.8 g/dL (3.4-5.0); ALBUMIN/GLOBULIN RATIO 1.03; ANION GAP 14.3; BILIRUBIN,TOTAL 0.36 mg/dL (0.00-1.20); BUN/CREATININE RATIO 14.74; CALCIUM 9.8 mg/dL (8.2-10.2); CREATININE 2.51 mg/dL (0.60-1.30); POTASSIUM 4.3 mmol/L (3.5-5.10); TOTAL PROTEIN 7.5 g/dL (6.4-8.2)
== END 2017-05-01 19:28 | disposition home or self-care (01) ==
LOC: ED 16:49
DX: R53.1 Weakness (principal); I12.9 Hypertensive chronic kidney disease with stage 1 through stage 4 chronic kidney disease, or unspecified chronic kidney disease; N18.9 Chronic kidney disease, unspecified; E78.5 Hyperlipidemia, unspecified; I10 Essential (primary) hypertension; Z79.899 Other long term (current) drug therapy; Z87.19 Personal history of other diseases of the digestive system
CPT/HCPCS: 36415; 80053; 81001; 85025; 99282

== ENCOUNTER 2017-05-10 13:07 | Outpatient (CLI) ==
[2017-05-10 13:22] LABS: BASOPHILS % (AUTO) 0.5 % (0.0-3.0); EOSINOPHILS # (AUTO) 0.2 K/ul (0.0-0.7); HEMATOCRIT 37.3 % (37.0-47.0); HEMOGLOBIN 12.3 g/dl (12.0-16.0); IMMATURE GRANULOCYTE % (AUTO) 0.6 % (0.0-5.0); LYMPHOCYTES # (AUTO) 1.2 K/uL (0.60-3.4); LYMPHOCYTES % (AUTO) 18.3 (10.0-50.0); MEAN CORPUSCULAR HEMOGLOBIN 30.1 pg (27.0-31.0); MEAN CORPUSCULAR VOLUME 91.2 fl (81.0-99.0); MONOCYTES # (AUTO) 0.4 K/uL (0.4-2.0); MONOCYTES % (AUTO) 5.8 (0-10); NEUTROPHILS # (AUTO) 4.6 K/ul (2.0-6.9); NEUTROPHILS % (AUTO) 71.8; PLATELET COUNT 187 10^3/uL (140-440); RED BLOOD COUNT 4.09 10^6/ul (4.20-5.40); WHITE BLOOD COUNT 6.38 K/ul (4.6-10.2)
== END 2017-05-10 13:08 | disposition home or self-care (01) ==
LOC: LAB 13:07
PROVIDERS: ATTEND Internal Medicine Hematology & Oncology
DX: D75.1 Secondary polycythemia (principal)
CPT/HCPCS: 36415; 85025

== ENCOUNTER 2017-05-11 14:34 | Outpatient (CLI) ==
[2017-05-11 15:03] LABS: ADD URINE MICROSCOPIC YES; BILIRUBIN,URINE Negative (NEGATIVE); HEMATOCRIT 38.6 % (37.0-47.0); HEMOGLOBIN 12.8 g/dl (12.0-16.0); KETONES,URINE Negative (NEGATIVE); LEUKOCYTE ESTERASE ,URINE Negative (NEGATIVE); MEAN CORPUSCULAR HEMOGLOBIN 30.3 pg (27.0-31.0); MEAN CORPUSCULAR HGB CONC 33.2 (31.8-35.4); MEAN CORPUSCULAR VOLUME 91.3 fl (81.0-99.0); NITRITE,URINE Negative (NEGATIVE); PH,URINE 5.5 (5-9); PROTEIN,URINE 1+ (NEGATIVE); RED BLOOD COUNT 4.23 10^6/ul (4.20-5.40); URINE, BLOOD Negative (NEGATIVE); WHITE BLOOD COUNT 6.88 K/ul (4.6-10.2)
[2017-05-11 15:08] LABS: BACTERIA,URINE 1+ (NOT PRESENT)
[2017-05-11 15:35] LABS: ALBUMIN 3.9 g/dL (3.4-5.0); ALBUMIN/GLOBULIN RATIO 1.08; ANION GAP 15.1; BILIRUBIN,TOTAL 0.39 mg/dL (0.00-1.20); BUN/CREATININE RATIO 10.44; CALCIUM 9.8 mg/dL (8.2-10.2); CREATININE 2.68 mg/dL (0.60-1.30); POTASSIUM 4.1 mmol/L (3.5-5.10); TOTAL PROTEIN 7.5 g/dL (6.4-8.2)
[2017-05-12 07:17] LABS: URINE CREATININE 70.3 mg/dL (Not Estab.)
[2017-05-12 15:22] LABS: URINE MALB/CR RATIO 240.7 mg/g creat (0.0-30.0)
== END 2017-05-11 14:35 | disposition home or self-care (01) ==
LOC: LAB 14:34
PROVIDERS: ATTEND Nurse Practitioner Family
DX: N18.4 Chronic kidney disease, stage 4 (severe) (principal)
CPT/HCPCS: 36415; 80053; 81001; 82043; 82306; 83970; 85027

== ENCOUNTER 2017-07-05 13:04 | Outpatient (CLI) ==
[2017-07-05 13:34] LABS: BASOPHILS % (AUTO) 0.6 % (0.0-3.0); EOSINOPHILS # (AUTO) 0.2 K/ul (0.0-0.7); EOSINOPHILS % (AUTO) 2.8 % (0.0-7.0); HEMOGLOBIN 11.4 g/dl (12.0-16.0); IMMATURE GRANULOCYTE % (AUTO) 0.5 % (0.0-5.0); LYMPHOCYTES # (AUTO) 1.2 K/uL (0.60-3.4); LYMPHOCYTES % (AUTO) 18.3 (10.0-50.0); MEAN CORPUSCULAR HEMOGLOBIN 29.2 pg (27.0-31.0); MEAN CORPUSCULAR HGB CONC 32.6 (31.8-35.4); MEAN CORPUSCULAR VOLUME 89.5 fl (81.0-99.0); MONOCYTES # (AUTO) 0.4 K/uL (0.4-2.0); MONOCYTES % (AUTO) 5.7 (0-10); NEUTROPHILS # (AUTO) 4.6 K/ul (2.0-6.9); NEUTROPHILS % (AUTO) 72.1; PLATELET COUNT 179 10^3/uL (140-440); RED BLOOD COUNT 3.91 10^6/ul (4.20-5.40); WHITE BLOOD COUNT 6.44 K/ul (4.6-10.2)
== END 2017-07-05 13:05 | disposition home or self-care (01) ==
LOC: LAB 13:04
PROVIDERS: ATTEND Internal Medicine Hematology & Oncology
DX: D75.1 Secondary polycythemia (principal)
CPT/HCPCS: 36415; 85025

== ENCOUNTER 2017-07-06 13:55 | Outpatient (CLI) ==
--- NOTE | 2017-07-06 14:39 | CT ---
Exam: CT of the abdomen pelvis without intravenous contrast. Comparison: 02/18/2017. Reason for exam: Polycythemia follow-up nodules. FINDINGS: Image interpretation is limited by the lack of intravenous contrast administration. No pleural effusions, or focal consolidations are seen within the partially imaged lung bases. The liver is markedly lower in attenuation in the spleen. The gallbladder is been removed. The spl enic parenchyma, pancreas, and adrenal glands are grossly unremarkable within limitations of a nonco ntrasted study. No focal small bowel dilatation or transition point. The appendix is grossly unremarkable. Prominent appearing lymph nodes are seen in the right lower quadrant with mild inflammatory changes seen in the mesenteric fat. The free air or pelvic free fluid. There are innumerable cystic masses of varying densities seen in both kidneys consistent with polycy stic kidney disease. No hydroureter or hydronephrosis. Operative changes are seen in the left leandra pelvis. There is diverticular disease in the rectosigmoi d without surrounding inflammatory change. No suspicious appearing osteoblastic or osteolytic lesions. The uterus and ovaries have been removed . There are inflammatory changes in the anterior subcutaneous abdominal fat. Impression: 1. Imaging findings are seen consistent with polycystic kidney disease. 2. Hepatic steatosis. 3. Inflammatory changes in the right lower quadrant may represent postsurgical change, mesenteric ad enitis, or colitis. Recommend follow up imaging to document resolution. 4. Operative changes are seen within the pelvis after the oophorectomy. 5. Diverticulosis.
== END 2017-07-06 13:56 | disposition home or self-care (01) ==
LOC: RAD 13:55
PROVIDERS: ATTEND Internal Medicine Hematology & Oncology
DX: D75.1 Secondary polycythemia (principal)

== ENCOUNTER 2017-08-31 13:18 | Outpatient (CLI) ==
[2017-08-31 13:40] LABS: BASOPHILS % (AUTO) 0.8 % (0.0-3.0); EOSINOPHILS # (AUTO) 0.2 K/ul (0.0-0.7); EOSINOPHILS % (AUTO) 4.3 % (0.0-7.0); HEMOGLOBIN 11.7 g/dl (12.0-16.0); IMMATURE GRANULOCYTE % (AUTO) 0.5 % (0.0-5.0); LYMPHOCYTES % (AUTO) 24.8 (10.0-50.0); MEAN CORPUSCULAR HGB CONC 33.4 (31.8-35.4); MEAN CORPUSCULAR VOLUME 86.8 fl (81.0-99.0); MONOCYTES # (AUTO) 0.2 K/uL (0.4-2.0); MONOCYTES % (AUTO) 5.8 (0-10); NEUTROPHILS # (AUTO) 2.6 K/ul (2.0-6.9); NEUTROPHILS % (AUTO) 63.8; PLATELET COUNT 144 10^3/uL (140-440); RED BLOOD COUNT 4.03 10^6/ul (4.20-5.40)
== END 2017-08-31 13:19 | disposition home or self-care (01) ==
LOC: LAB 13:18
PROVIDERS: ATTEND Internal Medicine Hematology & Oncology
DX: D75.1 Secondary polycythemia (principal)
CPT/HCPCS: 36415; 85025

== ENCOUNTER 2017-09-13 16:48 | Emergency (ER) ==
[2017-09-13 17:02] VITALS: BP 140/86; TEMP 98.3; BMI 45.4
[2017-09-13] MEDS ORDERED: ZOFRAN 4 MG/2 ML IVP STA (17:08)
[2017-09-13] MEDS ORDERED: SODIUM CHLORIDE 1,000 ML IV STA (17:08)
[2017-09-13 17:28] LABS: BASOPHILS % (AUTO) 0.7 % (0.0-3.0); EOSINOPHILS # (AUTO) 0.2 K/ul (0.0-0.7); EOSINOPHILS % (AUTO) 4.3 % (0.0-7.0); HEMATOCRIT 36.6 % (37.0-47.0); HEMOGLOBIN 12.2 g/dl (12.0-16.0); IMMATURE GRANULOCYTE % (AUTO) 0.4 % (0.0-5.0); LYMPHOCYTES # (AUTO) 1.2 K/uL (0.60-3.4); LYMPHOCYTES % (AUTO) 22.3 (10.0-50.0); MEAN CORPUSCULAR HEMOGLOBIN 29.4 pg (27.0-31.0); MEAN CORPUSCULAR HGB CONC 33.3 (31.8-35.4); MEAN CORPUSCULAR VOLUME 88.2 fl (81.0-99.0); MONOCYTES # (AUTO) 0.3 K/uL (0.4-2.0); MONOCYTES % (AUTO) 5.6 (0-10); NEUTROPHILS # (AUTO) 3.6 K/ul (2.0-6.9); NEUTROPHILS % (AUTO) 66.7; PLATELET COUNT 169 10^3/uL (140-440); RED BLOOD COUNT 4.15 10^6/ul (4.20-5.40); WHITE BLOOD COUNT 5.39 K/ul (4.6-10.2)
[2017-09-13 17:30] LABS: BILIRUBIN,URINE Negative (NEGATIVE); KETONES,URINE Negative (NEGATIVE); LEUKOCYTE ESTERASE ,URINE Negative (NEGATIVE); NITRITE,URINE Negative (NEGATIVE); PH,URINE 5.5 (5-9); PROTEIN,URINE 1+ (NEGATIVE); URINE, BLOOD Trace-intact (NEGATIVE)
[2017-09-13 17:34] LABS: ADD URINE MICROSCOPIC YES
[2017-09-13 17:54] LABS: ALANINE AMINOTRANSFERASE 48 U/L (12-78); ALBUMIN 3.8 g/dL (3.4-5.0); ALKALINE PHOSPHATASE 31 U/L (42-98); AMYLASE 83 U/L (25-115); ANION GAP 14.6; ASPARTATE AMINO TRANSFERASE 40 U/L (15-37); BILIRUBIN,TOTAL 0.37 mg/dL (0.00-1.20); BLOOD UREA NITROGEN 34 mg/dL (7-18); BUN/CREATININE RATIO 11.64; CALCIUM 10.2 mg/dL (8.2-10.2); CARBON DIOXIDE 22 mmol/L (21-32); CHLORIDE 108 mmol/L (98-107); CREATINE KINASE 76 U/L; CREATININE 2.92 mg/dL (0.60-1.30); GLUCOSE 138 mg/dL (70-110); LIPASE 58 U/L (8-78); POTASSIUM 4.6 mmol/L (3.5-5.10); SODIUM 140 mmol/L (136-145); TOTAL PROTEIN 7.6 g/dL (6.4-8.2)
--- NOTE | 2017-09-13 18:36 | CT ---
EXAM: CT brain without contrast HISTORY: Dizziness and vomiting TECHNIQUE: CT of the brain without intravenous contrast FINDINGS: There is no acute hemorrhage midline shift or mass effect. No hydrocephalus or abnormal e xtra-axial fluid collection. No significant parenchymal attenuation abnormality. The bony cranium a ppears normal. The visualized paranasal sinuses are clear. Soft tissues without significant abnormali ty. IMPRESSION: 1. CT of the brain within normal limits.
--- NOTE | 2017-09-13 18:39 | CT ---
EXAM: CT abdomen pelvis without contrast HISTORY: Right upper quadrant abdominal pain for multiple months. Patient is post cholecystectomy a nd prior hysterectomy. COMPARISON: CT abdomen pelvis 07/06/2017 and numerous priors TECHNIQUE: Serial axial images of the abdomen pelvis were performed from the lung bases through the inferior pelvis without contrast. These were viewed in multiple planes. FINDINGS: The lung bases are clear. Evaluation is limited due to lack of contrast. There is diffuse low attenuation of the liver unchang ed from prior exam. The gallbladder has been removed. There are innumerable low attenuation lesions throughout the kidneys which are unchanged from prior exam. No definitive interval changes identifie d. The spleen is normal. Pancreas is unremarkable. The stomach is normal. Small bowel in the abdomen and pelvis is unremarkable. The colon demonstrates diverticulosis without diverticulitis. The appendix is normal. Urinary bladder is distended. Soft tissues in the pelvis are unchanged. The osseous structures demonstrate degenerative disease in the lumbosacral spine. IMPRESSION: 1. No acute intra-abdominal or pelvic process to account for patient's symptoms. 2. Unchanged innumerable bilateral renal lesions most consistent with cyst. 3. Prior cholecystectomy and hysterectomy. 4. Low attenuation of the liver most consistent with hepatic steatosis. 5. Diverticulosis without diverticulitis.
--- NOTE | 2017-09-13 18:52 | ED.PDOC ---
General ED Provider: Dr. ANIA MCCARTHY-ER Chief Complaint: Dizziness Stated Complaint: im nauseated and dizzy Time Seen by Physician: 16:50 Mode of Arrival: Walk-In Information Source: Patient Exam Limitations: No limitations Primary Care Provider: ABNER MACHADO Nursing and Triage Documentation Reviewed and Agree: Yes GI Complaint Exam - Vomiting/Diarrhea Complaint/Exam Onset/Duration: several hours Symptoms Are: Still present Episodes of Vomiting over last 24 Hours: 2 Episodes of Diarrhea Over Last 24 Hours: 0 Initial Severity: Mild Current Severity: None Aggravating: Reports: None Alleviating: Reports: None Associated Signs and Symptoms: Denies: Dizziness, Light-headedness, Melena, Hematemesis, Fever, Abdominal pain, Cramping Recent Positive Test: No Use of Oral Contraceptives: No Use of Depoprovera: No Compliant With Contraceptive Use: No Non-GI Risk Factors: Reports: None K[place]ul Respirations Present: No Differential Diagnoses: Other Review of Systems - Review Of Systems Constitutional: Reports: No symptoms Eyes: Reports: No symptoms Ears, Nose, Mouth, Throat: Reports: No symptoms Respiratory: Reports: No symptoms Cardiac: Reports: No symptoms GI: Reports: Nausea : Reports: No symptoms Musculoskeletal: Reports: No symptoms Skin: Reports: No symptoms Neurological: Reports: No symptoms Endocrine: Reports: No symptoms Hematologic/Lymphatic: Reports: No symptoms All Other Systems: Reviewed and Negative Past Medical History - Past Medical History Previously Healthy: Yes Endocrine: Reports: Dyslipidemia Cardiovascular: Reports: Hypertension Respiratory: Reports: None Hematological: Reports: None Gastrointestinal: Reports: Liver (HEP C), GI Bleed, Diverticulitis, Gallstones, Pancreatitis Genitourinary: Reports: CKD, Other (polycystic kidneys) Neuro/Psych: Reports: None Musculoskeletal: Reports: None Cancer: Reports: None Last Menstrual Period: none Other Pertinent Past Medical History: pancreatitis - Surgical History General Surgical History: Reports: Hysterectomy, , Cholecystectomy ( ERCP) - Family History Family History: Reports: Unknown - Social History Smoking Status: Former smoker Hx Substance Use: No Alcohol Screening: None Physical Exam - Physical Exam Appearance: Well-appearing, No pain distress, Well-nourished Eyes: SARAH BETH, EOMI, Conjunctiva clear ENT: Ears normal, Nose normal, Oropharynx normal Neck: Supple Respiratory: Airway patent, Breath sounds clear, Breath sounds equal, Respirations nonlabored Cardiovascular: RRR, Pulses normal, No rub, No murmur GI/: Soft, Nontender, No masses, Bowel sounds normal, No Organomegaly Musculoskeletal: Normal strength, ROM intact, No edema, No calf tenderness Skin: Warm, Dry, Normal color Neurological: Alert, Oriented Psychiatric: Affect appropriate, Mood appropriate Interpretation - Radiology Interpretation Radiology Interpretation By: Radiologist Radiology Results: Negative Exam Interpreted: CT Scan - EKG Interpretation Time of EKG #1: 18:53 Rate: Normal Rhythm: Sinus Ectopy: None [place]: NL ST Segment: Normal Re-Evaluation - Re-Evaluation Time of Re-Evaluation: 18:54 Status: Improved Vital Signs Stable: Yes Pain Level: 0 Appearance: NAD Lungs: Clear Skin: Warm and Dry Neuro: Alert and Oriented X3 CV: RRR Critical Care Note - Critical Care Note Total Time (mins): 0 Course - Course Hematology/Chemistry: 09/13/17 17:20 09/13/17 17:20 Orders, Labs, Meds: Lab Review 09/13/17 09/13/17 09/13/17 17:20 17:20 17:20 WBC 5.39 RBC 4.15 L Hgb 12.2 Hct 36.6 L MCV 88.2 MCH 29.4 MCHC 33.3 RDW Coeff of Crow 15.2 H Plt Count 169 Immature Gran % (Auto) 0.4 Neut % (Auto) 66.7 Lymph % (Auto) 22.3 [place] % (Auto) 5.6 Eos % (Auto) 4.3 Baso % (Auto) 0.7 Immature Gran # (Auto) 0.0 Neut # 3.6 Lymph # 1.2 [place] # 0.3 L Eos # 0.2 Baso # 0.0 Sodium 140 Potassium 4.6 Chloride 108 H Carbon Dioxide 22 Anion Gap 14.6 BUN 34 H Creatinine 2.92 H Estimated GFR (MDRD) 17.00 BUN/Creatinine Ratio 11.64 Glucose 138 H Calcium 10.2 Total Bilirubin 0.37 AST 40 H ALT 48 Alkaline Phosphatase 31 L Total Creatine Kinase 76 Troponin I < 0.0100 Total Protein 7.6 Albumin 3.8 Globulin 3.8 Albumin/Globulin Ratio 1.00 Amylase 83 Lipase 58 Urine Color Yellow Urine Clarity Clear Urine pH 5.5 Ur Specific [place] 1.010 Urine Protein 1+ Urine Glucose (UA) Negative Urine Ketones Negative Urine Blood Trace-intact Urine Nitrite Negative Urine Bilirubin Negative Urine Urobilinogen 0.2 Ur Leukocyte Esterase Negative Urine Microscopic WBC 0-2 Ur Squamous Epith Cells 5-10 Ur Transition Epith Cell 0-2 Orders Category Date Time Status EKG-(ED ONLY) Stat CARDIO 09/13/17 17:07 Completed ED IV/MEDIPORT/POWERPORT .ONCE EMERGENCY 09/13/17 17:08 Active AMYLASE Stat LAB 09/13/17 17:20 Completed CBC W/ AUTO DIFF Stat LAB 09/13/17 17:20 Completed COMPREHENSIVE METABOLIC PANEL Stat LAB 09/13/17 17:20 Completed CREATINE KINASE Stat LAB 09/13/17 17:20 Completed LIPASE Stat LAB 09/13/17 17:20 Completed TROPONIN I Stat LAB 09/13/17 17:20 Completed URINALYSIS C & S IF INDICATED Stat LAB 09/13/17 17:20 Completed 0.9 % Sodium Chloride [Saline Flush] MEDS 09/13/17 17:08 Ordered 1 syr IVF PRN PRN Ondansetron HCl/Pf [Zofran 4 mg/2 ml] MEDS 09/13/17 17:08 Discontinued 4 mg IVP ONCE STA Sodium Chloride 0.9% [Sodium Chloride] 1,000 ml MEDS 09/13/17 17:[address] ABDOMEN/PELVIS WO CONTRAST Stat RADS 09/13/17 17:[address] HEAD W/O CONTRAST Stat RADS 09/13/17 17:09 Completed Medications Generic Name Dose Route Start Last Admin Trade Name Freq PRN Reason Stop Dose Admin Sodium Chloride 1 syr 09/13/17 17:08 09/13/17 17:30 Saline Flush IVF 1 syr PRN PRN Administration To flush IV Discontinued Medications Generic Name Dose Route Start Last Admin Trade Name Freq PRN Reason Stop Dose Admin Sodium Chloride 1,000 mls @ 1,000 mls/hr 09/13/17 17:08 09/13/17 17:30 Sodium Chloride IV 09/13/17 18:07 1,000 mls/hr BOLUS STA Administration Ondansetron HCl 4 mg 09/13/17 17:08 09/13/17 17:30 Zofran 4 Mg/2 Ml IVP 09/13/17 17:09 4 mg ONCE STA Administration Vital Signs: Temp Pulse Resp BP Pulse Ox 09/13/17 16:49 98.3 F 82 20 140/86 97 Departure - Departure Time of Disposition: 18:55 Disposition: HOME SELF-CARE Discharge Problem: Vertigo Instructions: Vertigo (ED) Condition: Fair Pt referred to PMD for follow-up: No Additional Instructions: zofran 4mg q 4hrs prn #4--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
== END 2017-09-13 19:02 | disposition home or self-care (01) ==
LOC: ED 16:48
DX: R42 Dizziness and giddiness (principal); Z79.899 Other long term (current) drug therapy
CPT/HCPCS: 36415; 80053; 81001; 82150; 82550; 83690; 84484; 85025; 93005; 93010; 96361; 96374; 99283

== ENCOUNTER 2017-10-20 12:33 | Outpatient (CLI) ==
[2017-10-20 12:59] LABS: HEMATOCRIT 35.9 % (37.0-47.0); HEMOGLOBIN 11.6 g/dl (12.0-16.0); MEAN CORPUSCULAR HEMOGLOBIN 29.4 pg (27.0-31.0); MEAN CORPUSCULAR HGB CONC 32.3 (31.8-35.4); MEAN CORPUSCULAR VOLUME 91.1 fl (81.0-99.0); RED BLOOD COUNT 3.94 10^6/ul (4.20-5.40); WHITE BLOOD COUNT 4.66 K/ul (4.6-10.2)
[2017-10-20 13:23] LABS: ALBUMIN 3.7 g/dL (3.4-5.0); ALBUMIN/GLOBULIN RATIO 0.95; ANION GAP 16.5; BILIRUBIN,TOTAL 0.28 mg/dL (0.00-1.20); BUN/CREATININE RATIO 17.15; CALCIUM 10.1 mg/dL (8.2-10.2); CREATININE 3.09 mg/dL (0.60-1.30); POTASSIUM 4.5 mmol/L (3.5-5.10); TOTAL PROTEIN 7.6 g/dL (6.4-8.2)
[2017-10-21 15:15] LABS: URINE CREATININE 72.8 mg/dL (Not Estab.)
== END 2017-10-20 12:34 | disposition home or self-care (01) ==
LOC: LAB 12:33
PROVIDERS: ATTEND Internal Medicine Nephrology
DX: N18.4 Chronic kidney disease, stage 4 (severe) (principal)
CPT/HCPCS: 36415; 80053; 82043; 85027

== ENCOUNTER 2017-10-31 08:48 | Outpatient (CLI) ==
[2017-10-31 09:33] LABS: BASOPHILS % (AUTO) 0.4 % (0.0-3.0); EOSINOPHILS # (AUTO) 0.2 K/ul (0.0-0.7); EOSINOPHILS % (AUTO) 3.3 % (0.0-7.0); HEMATOCRIT 37.1 % (37.0-47.0); HEMOGLOBIN 11.9 g/dl (12.0-16.0); IMMATURE GRANULOCYTE % (AUTO) 0.5 % (0.0-5.0); LYMPHOCYTES % (AUTO) 18.3 (10.0-50.0); MEAN CORPUSCULAR HEMOGLOBIN 28.8 pg (27.0-31.0); MEAN CORPUSCULAR HGB CONC 32.1 (31.8-35.4); MEAN CORPUSCULAR VOLUME 89.8 fl (81.0-99.0); MONOCYTES # (AUTO) 0.3 K/uL (0.4-2.0); MONOCYTES % (AUTO) 5.3 (0-10); NEUTROPHILS # (AUTO) 3.9 K/ul (2.0-6.9); NEUTROPHILS % (AUTO) 72.2; PLATELET COUNT 172 10^3/uL (140-440); RED BLOOD COUNT 4.13 10^6/ul (4.20-5.40); WHITE BLOOD COUNT 5.46 K/ul (4.6-10.2)
[2017-10-31 10:08] LABS: ALANINE AMINOTRANSFERASE 61 U/L (12-78); ALBUMIN 3.6 g/dL (3.4-5.0); ALBUMIN/GLOBULIN RATIO 0.95; ALKALINE PHOSPHATASE 35 U/L (42-98); ANION GAP 16.7; ASPARTATE AMINO TRANSFERASE 52 U/L (15-37); BILIRUBIN,TOTAL 0.34 mg/dL (0.00-1.20); BUN/CREATININE RATIO 20.19; CALCIUM 9.9 mg/dL (8.2-10.2); CARBON DIOXIDE 20 mmol/L (21-32); CHLORIDE 108 mmol/L (98-107); CREATININE 3.12 mg/dL (0.60-1.30); GLUCOSE 150 mg/dL (70-110); POTASSIUM 4.7 mmol/L (3.5-5.10); SODIUM 140 mmol/L (136-145); TOTAL PROTEIN 7.4 g/dL (6.4-8.2)
[2017-10-31 11:18] LABS: BLOOD UREA NITROGEN 63 mg/dL (7-18)
== END 2017-10-31 08:49 | disposition home or self-care (01) ==
LOC: LAB 08:48
PROVIDERS: ATTEND Nurse Practitioner
DX: B18.2 Chronic viral hepatitis C (principal)
CPT/HCPCS: 36415; 80053; 80307; 85025; 86701; 87522; 87902

== ENCOUNTER 2018-01-04 08:08 | Outpatient (CLI) ==
--- NOTE | 2018-01-04 16:28 | CT ---
EXAM: CT Abdomen without contrast. CT Pelvis without contrast. HISTORY: Right lower quadrant lymph nodes. COMPARISON: 09/13/2017. TECHNIQUE: Multiple axial images of the abdomen and pelvis were obtained without intravenous contras t. Images were reformatted in the coronal plane. FINDINGS: Please note that evaluation of the abdominal and pelvic structures is limited due to lack of intravenous contrast. The lung bases are clear. Degenerative changes present in the spine. The liver is enlarged and low density. Gallbladder is absent. Pancreas, spleen, and adrenal glands are unremarkable. Numerous bilateral renal cyst, some which are calcified or high density are presen t. No hydronephrosis detected. The bowel is normal in course and caliber without evidence for obstruction or inflammatory process. Probable left lateral gastric diverticulum on coronal image 27. Colonic diverticulosis is present. The appendix is normal. Uterus is absent. Urinary bladder is collapsed. Phleboliths noted in the p daniela. Mild atherosclerotic calcifications are present. No free fluid or free air identified. Ther e is no lymphadenopathy within limitations of noncontrast technique. IMPRESSION: 1. No acute abnormality within the abdomen or pelvis. No right lower quadrant mass or lymphadenopat hy identified. 2. Hepatomegaly with fatty infiltration. 3. Diverticulosis. 4. Polycystic kidneys.
== END 2018-01-04 08:09 | disposition home or self-care (01) ==
LOC: RAD 08:08
PROVIDERS: ATTEND Internal Medicine Hematology & Oncology
DX: D75.1 Secondary polycythemia (principal); N83.202 Unspecified ovarian cyst, left side; Q61.3 Polycystic kidney, unspecified

== ENCOUNTER 2018-03-02 10:13 | Outpatient (CLI) | payer OTHER ==
--- NOTE | 2018-03-02 11:55 | MAMMO ---
EXAM: Bilateral digital screening mammogram (2-D and 3-D) History: Baseline screening Findings: MLO and CC views of bilateral breasts demonstrate scattered fibroglandular breast parenchy ma. CAD was reviewed by the radiologist. Tomosynthesis was performed. Small benign oil cyst seen wit hin the anterior right breast measuring 4 mm. There are no suspicious masses, no suspicious microcal cifications and no architectural distortions Impression: Benign mammogram. Recommend followup routine screening mammography in 1 year. BIRADS 2
== END 2018-03-02 10:14 | disposition home or self-care (01) ==
LOC: RAD 10:13
PROVIDERS: ATTEND Family Medicine
DX: Z12.31 Encounter for screening mammogram for malignant neoplasm of breast (principal)
CPT/HCPCS: 77067

== ENCOUNTER 2018-04-11 12:44 | Outpatient (CLI) | payer OTHER | END 2018-04-11 12:45 | disposition home or self-care (01) | LOC: LAB 12:44 | PROVIDERS: ATTEND Internal Medicine Nephrology | DX: N18.6 End stage renal disease (principal) | CPT/HCPCS: 36415; 86900; 86901 ==

== ENCOUNTER 2019-02-19 06:47 | Outpatient (CLI) ==
[2018-10-19 20:16] VITALS: BMI 41.5
--- NOTE | 2019-02-19 08:52 | DI ---
EXAM: LEFT KNEE. HISTORY: Chronic left knee pain FINDINGS: Left knee three-view. General bone density appears normal. There is mild tricompartment osteoarthritis. No fracture or joint effusion. Soft tissues within normal limits. IMPRESSION: 1. Mild tricompartment osteoarthritis.
--- NOTE | 2019-02-19 12:51 | STRESSECHO ---
Date of Test: 02/19/19 Ordering Physician: DR. ABNER MACHADO Occupation: DISABLED Reason for Exam: CHEST PAIN, ELEVATED BP, DIALYSIS--RENAL FAILURE Smoking History: QUIT 3 YRS AGO Height: 66" Weight: 250 LBS Current Medications: ASA, BUMETANIDE, CALCITRIOL, CHOLECALCIFEROL, FENOFIBRATE, LANTUS, LANTHANUM CARBONATE, PRILOSEC, ZOLOFT Resting EKG: SINUS RHYTHM/NO ACUTE CHANGES Target Heart Rate: 147/173 S-T SEGMENT STAGE MPH/GRADE HEART RATE BPM BLOOD PRESSURE MMHG RHYTHM +/- ELEVATION DEPRESSION SYMPTOMS AT REST 65 BPM 118/70 MMHG SR X NONE 1 1.7/10% 130 BPM 130/62 MMHG SR X NONE 2 2.5/12% 3 3.4/14% 4 4.2/16% 5 5.0/18% Immediately After 147 BPM SR X SHORT OF AIR Minutes Post Exercise 4:00 88 BPM 120/70 MMHG SR X SHORT OF AIR Minutes Post Exercise DURATION OF EXERCISE: 5:00 MAXIMUM HEART RATE REACHED: 147 BPM REASON FOR TERMINATION: SHORT OF AIR 95% OXYGEN SATURATION WITH EXERCISE ON ROOM AIR METS 7.0 INTERPRETATION: 1. NO EVIDENCE OF ISCHEMIA BY ST- WAVE 2. NO CHEST PAIN OR DISCOMFORT 3. NO ARRHYTHMIAS 4. BLOOD PRESSURE RESPONSE: NORMAL NORMAL LEFT VENTRICULAR CONTRACTILITY--BY ECHO RESTING AND POST EXERCISE MTDD
--- NOTE | 2019-02-19 12:56 | ECHOSTRESS ---
Date of Exam: 02/19/19 Ordering Physician: DR. ABNER MACHADO Reason for Echo: CHEST PAIN, ELEVATED BP M-Mode Normal Adult Results LV Dimensions Normal Adult Results AoV Opening excursions >1.6 LVEDD-base- 3.5-5.8 Ao root dimensions 2.0-3.7 LVESD-base- 3.1-4.6 L. Atrium dimensions 1.9-3.8 Post. Wall thickness 0.8-1.1 IV septum (thickness) 0.7-1.2 Post. Wall excursion 0.72-1.3 Septal motion Systolic motion R. Ventricular cavity 1.5-2.0 LVEF 60% Paradoxical septal wall motion 2-D: NORMAL LEFT VENTRICULAR CONTRACTILITY--RESTING AND POST EXERCISE M-MODE: MV: AV: TV: PV: CHAMBER SIZE: WALL MOTION: NORMAL LEFT VENTRICULAR CONTRACTILITY--RESTING AND POST EXERCISE PERICARDIUM: INTERPRETATION: 1. NORMAL LEFT VENTRICULAR CONTRACTILITY--RESTING AND POST EXERCISE MTDD
== END 2019-02-19 06:48 | disposition home or self-care (01) ==
LOC: CAR 06:47
PROVIDERS: ATTEND Family Medicine
DX: R07.9 Chest pain, unspecified (principal); R03.0 Elevated blood-pressure reading, without diagnosis of hypertension; M25.562 Pain in left knee; G89.29 Other chronic pain

== ENCOUNTER 2019-02-22 05:37 | Outpatient (CLI) ==
[2018-10-19 20:16] VITALS: BMI 41.5
== END 2019-02-22 05:38 | disposition home or self-care (01) ==
LOC: LAB 05:37
PROVIDERS: ATTEND Internal Medicine Gastroenterology
DX: Z09 Encounter for follow-up examination after completed treatment for conditions other than malignant neoplasm (principal); R10.13 Epigastric pain; K57.32 Diverticulitis of large intestine without perforation or abscess without bleeding
CPT/HCPCS: 87338

== ENCOUNTER 2019-03-05 13:03 | Outpatient (CLI) | payer OTHER ==
[2018-10-19 20:16] VITALS: BMI 41.5
--- NOTE | 2019-03-06 11:21 | MAMMO ---
EXAM: Digital screening mammogram with tomosynthesis HISTORY: Screening COMPARISON: 03/02/2018 FINDINGS: Digital MLO and CC views of the right and left breast were performed. Tomosynthesis was performed. Computer aided detection utilized. There are scattered fibroglandular densities. There is no evidence for mass, asymmetry, distortion, or suspicious calcifications in either breast. IMPRESSION: 1. No evidence of malignancy in the right or left breast. 2. Annual screening mammogram is recommended in one year. BIRADS category 1, negative examination
== END 2019-03-05 13:04 | disposition home or self-care (01) ==
LOC: RAD 13:03
PROVIDERS: ATTEND Family Medicine
DX: Z12.31 Encounter for screening mammogram for malignant neoplasm of breast (principal)